=== PATIENT | male | born 1970 | race Caucasian/White ===

== ENCOUNTER 2017-02-13 17:24 | Emergency (ER) | payer BC, OTHER ==
[2017-02-13] MEDS ORDERED: Ibuprofen 800 MG Tab PO ONE (17:55)
--- NOTE | 2017-02-13 18:05 | EDM.PDOC ---
ED HPI GENERAL MEDICAL PROBLEM - General Chief Complaint: Upper Extremity Injury/Pain Stated Complaint: DISLOCATED SHOULDER Time Seen by Provider: 02/13/17 17:28 Source of Information: Reports: Patient History Limitations: Reports: No Limitations - History of Present Illness INITIAL COMMENTS - FREE TEXT/NARRATIVE: This patient comes in with a dislocated left shoulder. [place] somehow managed to dislocate the shoulder. He had recurrent dislocations many years ago but subsequently had surgery and the shoulders been stable since then. The patient's shoulder spontaneously reproduced when he was being positioned on the stretcher and that was prior to my examining him. - Related Data Allergies Allergy/AdvReac Type Severity Reaction Status Date / Time No Known Allergies Allergy Verified 02/13/17 17:44 Home Meds: Home Meds Simvastatin [Zocor] 02/13/17 [History] Past Medical History - Past Surgical History Musculoskeletal Surgical History: Reports: Shoulder Surgery Social & Family History - Tobacco Use Smoking Status *Q: Never Smoker Review of Systems - Review of Systems Review Of Systems: ROS reveals no pertinent complaints other than HPI. Musculoskeletal: Reports: Other (See history of present illness) ED EXAM, GENERAL - Physical Exam Exam: See Below Exam Limited By: No Limitations General Appearance: Alert, WD/WN, No Apparent Distress Extremities: Other (There is full range of motion of the left shoulder. Neurovascular tendon all appear to be intact there is a well-healed scar to the anterior aspect of the left shoulder.) Course - Orders/Labs/Meds Meds: Medications Discontinued Medications Generic Name Dose Route Start Last Admin Trade Name Freq PRN Reason Stop Dose Admin Ibuprofen 800 mg 02/13/17 17:55 Motrin PO 02/13/17 17:56 ONETIME ONE - Re-Assessments/Exams Free Text/Narrative Re-Assessment/Exam: 02/13/17 18:03 This appears to be in an anterior location of the left shoulder that spontaneously reduced prior to my exam Departure - Departure Time of Disposition: 18:03 Disposition: Home, Self-Care 01 Condition: Good Clinical Impression: Dislocation of left shoulder joint - Discharge Information Forms: ED Department Discharge Additional Instructions: Use Tylenol or ibuprofen as needed for pain. It may help to apply ice to the shoulder tonight. You may experience a little bit of stiffness to the shoulder so some gentle range of motion exercises for the next few days with help. You may want to review some techniques for self reduction of shoulder dislocations. A good technique to review is the "Davos" technique which is used by the as well as Kayakers etc.
[2017-02-13 18:18] VITALS: BP 130/68
== END 2017-02-13 18:12 | disposition home or self-care (01) ==
LOC: JP.ED 17:24
DX: S43.005A Unspecified dislocation of left shoulder joint, initial encounter (principal); Z98.890 Other specified postprocedural states; Y93.16 Activity, rowing, canoeing, kayaking, rafting and tubing; X50.9XXA Other and unspecified overexertion or strenuous movements or postures, initial encounter
CPT/HCPCS: 99283; A9270